=== PATIENT | male | born 1960 | race Caucasian/White ===

== ENCOUNTER 2021-03-02 12:53 | Inpatient (IN) ==
[2021-03-02] MEDS ORDERED: CeFAZolin Syr 2,000MG/20 ML 2,000 MG/20 ML SYRINGE IVPB ONE (14:34)
[2021-03-02] MEDS ORDERED: MetroNIDAZOLE 500 MG/100 ML 500 MG/100 ML BAG IVPB ONE (14:36)
[2021-03-02] MEDS ORDERED: Ringers Solution, Lactated 1,000 ML IVC SCH (14:45)
[2021-03-02] MEDS ORDERED: *HR* OxyCODONE Immed Rel 5 MG TABLET PO PRN (15:36)
[2021-03-02] MEDS ORDERED: Ketorolac 15 MG/ML VIAL IVP PRN (15:36)
[2021-03-02] MEDS ORDERED: Ondansetron 4 MG/2 ML VIAL IVP PRN ×2 (15:36→23:40)
[2021-03-02] MEDS ORDERED: Famotidine 20 MG/2 ML VIAL IVP ONE (15:36)
[2021-03-02] MEDS ORDERED: Acetaminophen IV 1,000 MG/100 ML BAG IVPB ONE (15:45)
[2021-03-02] MEDS ORDERED: Pregabalin 75 MG CAPSULE PO ONE (15:45)
[2021-03-02] MEDS ORDERED: *HR* Midazolam HCl 2 MG/2 ML VIAL ONE (15:48)
[2021-03-02] MEDS ORDERED: *HR* FentaNYL (PF) 100 MCG/2 ML VIAL ONE ×2 (15:48→17:51)
[2021-03-02] MEDS ORDERED: *HR* Propofol 200 MG/20 ML VIAL IVP ONE (15:48)
[2021-03-02] MEDS ORDERED: *HR* Rocuronium Bromide 50 MG/5 ML VIAL ONE ×3 (15:55→18:52)
[2021-03-02] MEDS ORDERED: Lidocaine HCL 4 ML Topical Solution (Laryng-O-Jet Kit Sterile Pak) TP ONE (15:55)
[2021-03-02] MEDS ORDERED: Ondansetron 4 MG/2 ML VIAL ONE ×2 (15:55→20:13)
[2021-03-02] MEDS ORDERED: Lidocaine -MPF 2% 5 ML VIAL ONE (15:55)
[2021-03-02] MEDS ORDERED: Ipratropium/Albuterol Neb 3 ML IH ONE (16:00)
[2021-03-02] MEDS ORDERED: Clindamycin 900 MG/50 ML 900 MG/50 ML IV.SOLN IVPB ONE (16:56)
[2021-03-02] MEDS ORDERED: *HR* Labetalol 20 MG/4 ML SYRINGE IVP ONE (18:40)
[2021-03-02] MEDS ORDERED: Sugammadex Sodium 200 MG/2 ML VIAL IV ONE (20:12)
[2021-03-02] MEDS ORDERED: Ketorolac 30 MG/ML VIAL ONE (20:12)
[2021-03-02] MEDS ORDERED: *HR* HYDROMORPHONE 2 MG/ML VIAL ONE (20:16)
[2021-03-02] MEDS: *HR* HYDROmorphone PF 0.5 MG/0.5 ML SYRINGE IVP PRN ×2 (21:01→21:11)
[2021-03-02] MEDS ORDERED: Naloxone 0.4 MG/ML INJ IVP PRN (22:04)
[2021-03-02] MEDS ORDERED: Budesonide/Formoterol 160/4.5 1 PUFF INH IH SCH (22:04)
[2021-03-03] MEDS ORDERED: D5% in 0.45% NACL w KCl 20 MEQ/1,000 ML MLS IVC SCH
[2021-03-03] MEDS: 0.9 % Sodium Chloride 1,000 ML IVC SCH ×3 (00:22→20:12)
[2021-03-03] MEDS: Acetaminophen IV 1,000 MG/100 ML BAG IVPB SCH ×5 (00:57→23:37)
[2021-03-03] MEDS: *HR* OxyCODONE Immed Rel 5 MG TABLET PO PRN ×2 (02:42→20:15)
[2021-03-03 03:29] LABS: Basophils % 0.3 %; Eosinophils % 0.1 %; Hematocrit 46.1 % (37.5-50.1); Immature Granulocytes % 0.5 % (0-4); Lymphocytes # 0.5 K/mcL (0.6-4.6); Lymphocytes % 3.6 %; Mean Corpuscular HGB Conc 34.7 g/dL (31.6-35.5); Mean Corpuscular Hemoglobin 35.6 pg (28.0-33.3); Mean Corpuscular Volume 102.7 fL (83.0-100.0); Mean Platelet Volume 9.1 fL (9.4-12.4); Monocytes # 1.1 K/mcL (0.0-1.3); Monocytes % 7.6 %; Neutrophils # 13.1 K/mcL (1.6-8.9); Platelet Count 253 K/mcL (140-400); Red Blood Count 4.49 M/mcL (4.19-5.50); Red Cell Distribution Width 12.7 % (11.5-14.5); Segmented Neutrophils % 87.9 %; White Blood Count 14.8 K/mcL (4.3-11.1)
[2021-03-03 03:36] LABS: Calcium 8.4 mg/dL (8.6-10.3); Magnesium 1.6 mg/dL (1.6-2.6); Phosphorous 5.5 mg/dL (2.7-4.5); Potassium 5.2 mEq/L (3.5-5.1)
[2021-03-03] MEDS: Budesonide/Formoterol 160/4.5 1 PUFF INH IH SCH ×3 (03:42→22:05)
[2021-03-03] MEDS ORDERED: Ketorolac 15 MG/ML VIAL IVP SCH (06:00)
[2021-03-03] MEDS: Gabapentin 300 MG CAPSULE PO SCH (07:34)
[2021-03-03] MEDS: hydroCHLOROthiazide 25 MG TABLET PO SCH (07:35)
[2021-03-03] MEDS ORDERED: 0.9 % Sodium Chloride 500 ML IVC ONE (08:00)
[2021-03-04] MEDS: *HR* OxyCODONE Immed Rel 5 MG TABLET PO PRN ×2 (06:10→16:07)
[2021-03-04] MEDS: *HR* Enoxaparin 40 MG/0.4 ML SYRINGE SQ SCH (06:11)
[2021-03-04] MEDS: Acetaminophen IV 1,000 MG/100 ML BAG IVPB SCH ×4 (06:11→23:39)
[2021-03-04 06:48] LABS: Basophils % 0.3 %; Eosinophils # 0.1 K/mcL (0.0-0.6); Eosinophils % 0.9 %; Hematocrit 35.1 % (37.5-50.1); Immature Granulocytes % 0.4 % (0-4); Lymphocytes # 1.4 K/mcL (0.6-4.6); Lymphocytes % 13.8 %; Mean Corpuscular HGB Conc 34.5 g/dL (31.6-35.5); Mean Corpuscular Volume 104.5 fL (83.0-100.0); Mean Platelet Volume 9.2 fL (9.4-12.4); Monocytes # 1.2 K/mcL (0.0-1.3); Neutrophils # 7.2 K/mcL (1.6-8.9); Platelet Count 183 K/mcL (140-400); Red Blood Count 3.36 M/mcL (4.19-5.50); Red Cell Distribution Width 12.8 % (11.5-14.5); Segmented Neutrophils % 72.6 %; White Blood Count 9.9 K/mcL (4.3-11.1)
[2021-03-04 06:52] LABS: Hemoglobin 12.1 g/dL (12.9-16.9)
[2021-03-04 07:16] LABS: BUN/Creatinine Ratio 13 (6-26); Blood Urea Nitrogen 12 mg/dL (8-23); Calcium 8.1 mg/dL (8.6-10.3); Carbon Dioxide 26 mEq/L (23-29); Chloride 104 mEq/L (98-107); Glucose 96 mg/dL (70-105); Magnesium 1.7 mg/dL (1.6-2.6); Osmolality,Calculated 278 (280-300); Phosphorous 2.6 mg/dL (2.7-4.5); Potassium 3.6 mEq/L (3.5-5.1); Sodium 134 mEq/L (136-145); eGFR For African Americans > 60 (> 60); eGFR For Non-African Americans > 60 (> 60)
[2021-03-04] MEDS: hydroCHLOROthiazide 25 MG TABLET PO SCH (07:39)
[2021-03-04] MEDS: Gabapentin 300 MG CAPSULE PO SCH (07:39)
[2021-03-04] MEDS: Budesonide/Formoterol 160/4.5 1 PUFF INH IH SCH ×2 (08:15→20:09)
[2021-03-04] MEDS ORDERED: D5% in 0.45% NACL w KCl 20 MEQ/1,000 ML MLS IVC SCH ×2 (10:30→11:01)
[2021-03-04] MEDS ORDERED: Simethicone 80 MG TAB.CHEW PO PRN (11:03)
[2021-03-04] MEDS ORDERED: Ipratropium/Albuterol Neb 3 ML ONE (11:11)
[2021-03-04] MEDS: Ipratropium/Albuterol Neb 3 ML IH SCH ×3 (12:03→20:09)
[2021-03-04] MEDS: Nicotine 7 MG PATCH.TD24 TD SCH (13:23)
[2021-03-05 02:58] LABS: Basophils % 0.4 %; Eosinophils # 0.1 K/mcL (0.0-0.6); Eosinophils % 1.2 %; Hematocrit 33.6 % (37.5-50.1); Hemoglobin 11.4 g/dL (12.9-16.9); Immature Granulocytes % 0.6 % (0-4); Lymphocytes # 1.3 K/mcL (0.6-4.6); Lymphocytes % 12.1 %; Mean Corpuscular HGB Conc 33.9 g/dL (31.6-35.5); Mean Corpuscular Hemoglobin 35.1 pg (28.0-33.3); Mean Corpuscular Volume 103.4 fL (83.0-100.0); Monocytes # 1.2 K/mcL (0.0-1.3); Monocytes % 11.2 %; Neutrophils # 7.9 K/mcL (1.6-8.9); Platelet Count 188 K/mcL (140-400); Red Blood Count 3.25 M/mcL (4.19-5.50); Red Cell Distribution Width 12.4 % (11.5-14.5); Segmented Neutrophils % 74.5 %; White Blood Count 10.6 K/mcL (4.3-11.1)
[2021-03-05 03:10] LABS: BUN/Creatinine Ratio 9 (6-26); Blood Urea Nitrogen 7 mg/dL (8-23); Calcium 8.1 mg/dL (8.6-10.3); Carbon Dioxide 28 mEq/L (23-29); Chloride 99 mEq/L (98-107); Glucose 136 mg/dL (70-105); Magnesium 1.6 mg/dL (1.6-2.6); Osmolality,Calculated 274 (280-300); Phosphorous 3.2 mg/dL (2.7-4.5); Potassium 2.9 mEq/L (3.5-5.1); Sodium 132 mEq/L (136-145); eGFR For African Americans > 60 (> 60); eGFR For Non-African Americans > 60 (> 60)
[2021-03-05] MEDS: Ipratropium/Albuterol Neb 3 ML IH SCH ×2 (04:14→10:42)
[2021-03-05] MEDS: Acetaminophen IV 1,000 MG/100 ML BAG IVPB SCH (05:25)
[2021-03-05] MEDS: *HR* Enoxaparin 40 MG/0.4 ML SYRINGE SQ SCH (05:26)
[2021-03-05 08:25] VITALS: BP 121/75; PULSE 81; TEMP 98.4
[2021-03-05] MEDS ORDERED: 0.9 % Sodium Chloride 1,000 ML IVC SCH (08:30)
[2021-03-05] MEDS: hydroCHLOROthiazide 25 MG TABLET PO SCH (09:08)
[2021-03-05] MEDS: Gabapentin 300 MG CAPSULE PO SCH (09:09)
[2021-03-05] MEDS: Nicotine 7 MG PATCH.TD24 TD SCH (09:44)
[2021-03-05] MEDS: Budesonide/Formoterol 160/4.5 1 PUFF INH IH SCH (10:42)
[2021-03-05 10:44] VITALS: O2SAT 95
[2021-03-05] MEDS ORDERED: MOM Conc 10 ML UD.LIQ PO ONE (13:49)
[2021-03-05] MEDS ORDERED: Potassium Chloride Elixir 20 MEQ/15 ML UDC PO ONE (13:49)
== END 2021-03-05 14:38 | disposition home or self-care (01) | DRG 330 ==
LOC: SAMDAY 12:53 → 3ANU 13:54
PROVIDERS: ADMIT Surgery; ATTEND Surgery

== ENCOUNTER 2021-03-06 14:24 | Inpatient (IN) ==
[2021-03-06] MEDS ORDERED: *HR* FentaNYL (PF) 100 MCG/2 ML VIAL ONE ×2 (17:23→19:27)
[2021-03-06] MEDS ORDERED: *HR* Propofol 200 MG/20 ML VIAL IVP ONE ×2 (17:23→19:28)
[2021-03-06] MEDS ORDERED: Ondansetron 4 MG/2 ML VIAL ONE (17:25)
[2021-03-06] MEDS ORDERED: Lidocaine HCL 4 ML Topical Solution (Laryng-O-Jet Kit Sterile Pak) TP ONE (17:25)
[2021-03-06] MEDS ORDERED: *HR* Rocuronium Bromide 50 MG/5 ML VIAL ONE ×2 (17:25→19:27)
[2021-03-06] MEDS ORDERED: Lidocaine -MPF 2% 5 ML VIAL ONE ×3 (17:25→20:40)
[2021-03-06] MEDS ORDERED: Ondansetron 4 MG/2 ML VIAL IVP PRN (18:23)
[2021-03-06] MEDS ORDERED: Albuterol 2.5 MG/3 ML NEBULIZER IH PRN (18:23)
[2021-03-06] MEDS ORDERED: *HR* HYDROmorphone PF 0.5 MG/0.5 ML SYRINGE IVP PRN (18:23)
[2021-03-06] MEDS ORDERED: *HR* Meperidine 25 MG/ML SYRINGE IVP PRN (18:23)
[2021-03-06] MEDS ORDERED: *HR* Midazolam HCl 2 MG/2 ML VIAL ONE (19:27)
[2021-03-06] MEDS ORDERED: *HR* Succinylcholine 200 MG/10 ML VIAL IVP ONE (19:27)
[2021-03-06] MEDS ORDERED: *HR* Etomidate 40 MG/20 ML VIAL IVP ONE (19:35)
[2021-03-06] MEDS ORDERED: CefOXitin 2,000 MG VIAL ONE (19:42)
[2021-03-06] MEDS ORDERED: *HR* Magnesium Sulfate 1 GM/2 ML VIAL ONE (19:46)
[2021-03-06] MEDS ORDERED: Albumin Human 5% 25.0 GM/500 ML IV.SOLN ONE (19:47)
[2021-03-06] MEDS ORDERED: *HR* Labetalol 20 MG/4 ML SYRINGE IVP ONE (20:37)
[2021-03-06] MEDS ORDERED: Ondansetron ODT 4 MG TAB.RAPDIS SL PRN (21:11)
[2021-03-06] MEDS ORDERED: *HR* Metoprolol 5 MG/5 ML VIAL IVP PRN (21:11)
[2021-03-06] MEDS ORDERED: *HR* HYDROmorphone 20 MG/20 ML PCA IVC PRN (21:11)
[2021-03-06 22:39] LABS: Basophils % 0.3 %; Eosinophils # 0.1 K/mcL (0.0-0.6); Eosinophils % 0.4 %; Hematocrit 34.5 % (37.5-50.1); Hemoglobin 11.7 g/dL (12.9-16.9); Immature Granulocytes % 0.7 % (0-4); Lymphocytes # 0.5 K/mcL (0.6-4.6); Lymphocytes % 3.9 %; Mean Corpuscular HGB Conc 33.9 g/dL (31.6-35.5); Mean Corpuscular Hemoglobin 35.1 pg (28.0-33.3); Mean Corpuscular Volume 103.6 fL (83.0-100.0); Mean Platelet Volume 8.8 fL (9.4-12.4); Monocytes # 0.9 K/mcL (0.0-1.3); Monocytes % 6.5 %; Neutrophils # 12.2 K/mcL (1.6-8.9); Platelet Count 228 K/mcL (140-400); Red Blood Count 3.33 M/mcL (4.19-5.50); Red Cell Distribution Width 12.5 % (11.5-14.5); Segmented Neutrophils % 88.2 %; White Blood Count 13.8 K/mcL (4.3-11.1)
[2021-03-06] MEDS: 0.9 % Sodium Chloride 1,000 ML IVC SCH (22:52)
[2021-03-06 23:00] LABS: BUN/Creatinine Ratio 10 (6-26); Blood Urea Nitrogen 9 mg/dL (8-23); Calcium 7.8 mg/dL (8.6-10.3); Carbon Dioxide 24 mEq/L (23-29); Chloride 99 mEq/L (98-107); Glucose 128 mg/dL (70-105); Osmolality,Calculated 278 (280-300); Phosphorous 3.5 mg/dL (2.7-4.5); Potassium 4.1 mEq/L (3.5-5.1); Sodium 134 mEq/L (136-145); eGFR For African Americans > 60 (> 60); eGFR For Non-African Americans > 60 (> 60)
[2021-03-06] MEDS: Acetaminophen IV 1,000 MG/100 ML BAG IVPB SCH (23:46)
[2021-03-06] MEDS: Piperacillin/Tazobactam 3.375 GM in 0.9 % Sodium Chloride Mini Bag 100 ML IVPB SCH (23:47)
[2021-03-07] MEDS: Acetaminophen IV 1,000 MG/100 ML BAG IVPB SCH ×3 (06:20→20:33)
[2021-03-07] MEDS: *HR* Enoxaparin 40 MG/0.4 ML SYRINGE SQ SCH (06:20)
[2021-03-07] MEDS: Piperacillin/Tazobactam 3.375 GM in 0.9 % Sodium Chloride Mini Bag 100 ML IVPB SCH ×2 (07:41→17:17)
[2021-03-07] MEDS ORDERED: Albuterol 2.5 MG/3 ML NEBULIZER IH SCH (08:00)
[2021-03-07] MEDS: 0.9 % Sodium Chloride 1,000 ML IVC SCH ×2 (09:23→20:32)
[2021-03-07 14:14] LABS: Basophils % 0.1 %; Eosinophils % 0.2 %; Hematocrit 32.5 % (37.5-50.1); Immature Granulocytes % 0.5 % (0-4); Lymphocytes % 9.6 %; Mean Corpuscular HGB Conc 33.8 g/dL (31.6-35.5); Mean Corpuscular Hemoglobin 35.4 pg (28.0-33.3); Mean Corpuscular Volume 104.5 fL (83.0-100.0); Mean Platelet Volume 9.1 fL (9.4-12.4); Monocytes # 1.3 K/mcL (0.0-1.3); Monocytes % 13.3 %; Neutrophils # 7.6 K/mcL (1.6-8.9); Platelet Count 250 K/mcL (140-400); Red Blood Count 3.11 M/mcL (4.19-5.50); Red Cell Distribution Width 12.6 % (11.5-14.5); Segmented Neutrophils % 76.3 %
[2021-03-07 14:33] LABS: Magnesium 2.1 mg/dL (1.6-2.6); Phosphorous 3.7 mg/dL (2.7-4.5)
[2021-03-07 14:34] LABS: BUN/Creatinine Ratio 12 (6-26); Blood Urea Nitrogen 11 mg/dL (8-23); Calcium 8.2 mg/dL (8.6-10.3); Carbon Dioxide 30 mEq/L (23-29); Chloride 98 mEq/L (98-107); Glucose 105 mg/dL (70-105); Osmolality,Calculated 280 (280-300); Potassium 4.2 mEq/L (3.5-5.1); Sodium 135 mEq/L (136-145); eGFR For African Americans > 60 (> 60); eGFR For Non-African Americans > 60 (> 60)
[2021-03-07] MEDS: Albuterol 2.5 MG/3 ML NEBULIZER IH SCH ×2 (16:01→20:37)
[2021-03-08] MEDS: Acetaminophen IV 1,000 MG/100 ML BAG IVPB SCH ×5 (01:00→23:49)
[2021-03-08] MEDS: Piperacillin/Tazobactam 3.375 GM in 0.9 % Sodium Chloride Mini Bag 100 ML IVPB SCH ×4 (01:01→23:49)
[2021-03-08] MEDS: Albuterol 2.5 MG/3 ML NEBULIZER IH SCH ×4 (03:47→19:59)
[2021-03-08] MEDS: 0.9 % Sodium Chloride 1,000 ML IVC SCH ×2 (05:18→16:51)
[2021-03-08] MEDS: *HR* Enoxaparin 40 MG/0.4 ML SYRINGE SQ SCH (05:19)
[2021-03-08 12:08] LABS: Alanine Aminotransferase 26 Units/L (7-52); Albumin 3.4 g/dL (3.5-5.7); Albumin/Globulin Ratio 1.1 (1.1-2.2); Alkaline Phosphatase 46 Units/L (34-104); Aspartate Amino Transferase 38 Units/L (13-39); BUN/Creatinine Ratio 15 (6-26); Bilirubin,Total 0.7 mg/dL (0.3-1.0); Blood Urea Nitrogen 13 mg/dL (8-23); Calcium 8.5 mg/dL (8.6-10.3); Carbon Dioxide 29 mEq/L (23-29); Chloride 96 mEq/L (98-107); Glucose 82 mg/dL (70-105); Magnesium 2.2 mg/dL (1.6-2.6); Osmolality,Calculated 291 (280-300); Potassium 3.4 mEq/L (3.5-5.1); Sodium 141 mEq/L (136-145); Total Protein 6.4 g/dL (6.4-8.9); eGFR For African Americans > 60 (> 60); eGFR For Non-African Americans > 60 (> 60)
[2021-03-08] MEDS ORDERED: Clinimix E 5%-20% SOLUTION 2,000 ML with MVI, adult with vitamin K 10 ML IVC SCH (17:00)
[2021-03-09] MEDS: 0.9 % Sodium Chloride 1,000 ML IVC SCH ×2 (03:48→17:04)
[2021-03-09] MEDS: Albuterol 2.5 MG/3 ML NEBULIZER IH SCH ×4 (04:03→20:35)
[2021-03-09] MEDS: *HR* Enoxaparin 40 MG/0.4 ML SYRINGE SQ SCH (05:06)
[2021-03-09] MEDS: Insulin LISPRO 300 UNITS/3 ML VIAL SUBQ SCH ×6 (05:06→23:59)
[2021-03-09] MEDS: Acetaminophen IV 1,000 MG/100 ML BAG IVPB SCH ×4 (05:07→23:37)
[2021-03-09 06:52] LABS: BUN/Creatinine Ratio 16 (6-26); Blood Urea Nitrogen 12 mg/dL (8-23); Calcium 8.3 mg/dL (8.6-10.3); Carbon Dioxide 43 mEq/L (23-29); Chloride 97 mEq/L (98-107); Glucose 144 mg/dL (70-105); Magnesium 2.2 mg/dL (1.6-2.6); Osmolality,Calculated 300 (280-300); Potassium 2.9 mEq/L (3.5-5.1); Sodium 144 mEq/L (136-145); eGFR For African Americans > 60 (> 60); eGFR For Non-African Americans > 60 (> 60)
[2021-03-09 08:15] LABS: Phosphorous 2.3 mg/dL (2.7-4.5); Triglycerides 146 mg/dL (< 150)
[2021-03-09] MEDS: Pantoprazole 40 MG VIAL IVP SCH (10:50)
[2021-03-09] MEDS ORDERED: D10% in Water 500 ML IVC PRN (11:43)
[2021-03-09] MEDS ORDERED: Clinimix E 5%-15% SOLUTION 2,000 ML with MVI, adult with vitamin K 10 ML IVC SCH (17:00)
[2021-03-09] MEDS ORDERED: 0.9 % Sodium Chloride 1,000 ML IVC ONE (18:24)
[2021-03-09] MEDS ORDERED: Potassium Phosphate 44 MEQ in 0.9 % Sodium Chloride 250 ML IVPB ONE (20:11)
[2021-03-10] MEDS: Albuterol 2.5 MG/3 ML NEBULIZER IH SCH ×4 (04:06→20:56)
[2021-03-10] MEDS: Insulin LISPRO 300 UNITS/3 ML VIAL SUBQ SCH ×5 (05:09→20:48)
[2021-03-10] MEDS: 0.9 % Sodium Chloride 1,000 ML IVC SCH ×3 (05:21→13:10)
[2021-03-10] MEDS: *HR* Enoxaparin 40 MG/0.4 ML SYRINGE SQ SCH (05:29)
[2021-03-10] MEDS: Pantoprazole 40 MG VIAL IVP SCH (05:29)
[2021-03-10] MEDS: Acetaminophen IV 1,000 MG/100 ML BAG IVPB SCH ×3 (05:30→17:11)
[2021-03-10 05:35] LABS: BUN/Creatinine Ratio 14 (6-26); Blood Urea Nitrogen 10 mg/dL (8-23); Calcium 7.9 mg/dL (8.6-10.3); Carbon Dioxide 37 mEq/L (23-29); Chloride 102 mEq/L (98-107); Glucose 123 mg/dL (70-105); Osmolality,Calculated 302 (280-300); Phosphorous 4.1 mg/dL (2.7-4.5); Sodium 146 mEq/L (136-145); eGFR For African Americans > 60 (> 60); eGFR For Non-African Americans > 60 (> 60)
[2021-03-10] MEDS ORDERED: 0.9 % Sodium Chloride 1,000 ML IVC ONE (10:02)
[2021-03-10] MEDS ORDERED: Clinimix E 5%-15% SOLUTION 2,000 ML with MVI, adult with vitamin K 10 ML IVC SCH (17:00)
[2021-03-11] MEDS: Insulin LISPRO 300 UNITS/3 ML VIAL SUBQ SCH ×6 (00:37→19:53)
[2021-03-11] MEDS: Acetaminophen IV 1,000 MG/100 ML BAG IVPB SCH ×4 (00:50→17:52)
[2021-03-11] MEDS: 0.9 % Sodium Chloride 1,000 ML IVC SCH ×2 (01:54→13:27)
[2021-03-11 04:07] LABS: BUN/Creatinine Ratio 19 (6-26); Blood Urea Nitrogen 12 mg/dL (8-23); Calcium 8.1 mg/dL (8.6-10.3); Carbon Dioxide 31 mEq/L (23-29); Chloride 107 mEq/L (98-107); Glucose 117 mg/dL (70-105); Osmolality,Calculated 299 (280-300); Potassium 3.2 mEq/L (3.5-5.1); Sodium 144 mEq/L (136-145); eGFR For African Americans > 60 (> 60); eGFR For Non-African Americans > 60 (> 60)
[2021-03-11] MEDS: Albuterol 2.5 MG/3 ML NEBULIZER IH SCH ×4 (04:54→22:03)
[2021-03-11] MEDS: *HR* Enoxaparin 40 MG/0.4 ML SYRINGE SQ SCH (05:34)
[2021-03-11] MEDS: Pantoprazole 40 MG VIAL IVP SCH (05:35)
[2021-03-11] MEDS ORDERED: Gabapentin 300 MG CAPSULE PO PRN (15:39)
[2021-03-11] MEDS ORDERED: diazePAM 5 MG TABLET PO PRN (15:39)
[2021-03-11] MEDS ORDERED: Isovue-370 500 ML BOTTLE IVP ONE (16:47)
[2021-03-11] MEDS ORDERED: Clinimix E 5%-15% SOLUTION 2,000 ML with MVI, adult with vitamin K 10 ML IVC SCH (17:00)
[2021-03-11] MEDS ORDERED: *HR* LORazepam 2 MG/ML VIAL IVP ONE (18:46)
[2021-03-11] MEDS: *HR* OxyCODONE Immed Rel 5 MG TABLET PO PRN (20:53)
[2021-03-11] MEDS: Budesonide/Formoterol 160/4.5 1 PUFF INH IH SCH (22:03)
[2021-03-11] MEDS ORDERED: Furosemide 40 MG/4 ML VIAL IVP ONE (23:39)
[2021-03-12] MEDS: Acetaminophen IV 1,000 MG/100 ML BAG IVPB SCH ×4 (00:42→17:47)
[2021-03-12 01:13] LABS: Basophils # 0.1 K/mcL (0.0-0.2); Basophils % 0.4 %; Eosinophils # 0.3 K/mcL (0.0-0.6); Eosinophils % 2.3 %; Hematocrit 33.6 % (37.5-50.1); Hemoglobin 10.9 g/dL (12.9-16.9); Immature Granulocytes % 0.5 % (0-4); Lymphocytes # 1.4 K/mcL (0.6-4.6); Lymphocytes % 10.5 %; Mean Corpuscular HGB Conc 32.4 g/dL (31.6-35.5); Mean Corpuscular Hemoglobin 34.9 pg (28.0-33.3); Mean Corpuscular Volume 107.7 fL (83.0-100.0); Mean Platelet Volume 8.6 fL (9.4-12.4); Monocytes # 1.1 K/mcL (0.0-1.3); Monocytes % 7.8 %; Neutrophils # 10.7 K/mcL (1.6-8.9); Platelet Count 352 K/mcL (140-400); Red Blood Count 3.12 M/mcL (4.19-5.50); Red Cell Distribution Width 12.8 % (11.5-14.5); Segmented Neutrophils % 78.5 %; White Blood Count 13.6 K/mcL (4.3-11.1)
[2021-03-12 01:32] LABS: BUN/Creatinine Ratio 16 (6-26); Blood Urea Nitrogen 11 mg/dL (8-23); Calcium 8.1 mg/dL (8.6-10.3); Carbon Dioxide 28 mEq/L (23-29); Chloride 103 mEq/L (98-107); Glucose 95 mg/dL (70-105); Magnesium 1.8 mg/dL (1.6-2.6); Osmolality,Calculated 285 (280-300); Phosphorous 2.9 mg/dL (2.7-4.5); Potassium 3.5 mEq/L (3.5-5.1); Sodium 138 mEq/L (136-145); eGFR For African Americans > 60 (> 60); eGFR For Non-African Americans > 60 (> 60)
[2021-03-12] MEDS: Insulin LISPRO 300 UNITS/3 ML VIAL SUBQ SCH ×6 (01:45→19:40)
[2021-03-12] MEDS: Albuterol 2.5 MG/3 ML NEBULIZER IH SCH ×4 (04:08→20:26)
[2021-03-12] MEDS: Pantoprazole 40 MG VIAL IVP SCH (06:19)
[2021-03-12] MEDS: *HR* Enoxaparin 40 MG/0.4 ML SYRINGE SQ SCH (06:22)
[2021-03-12] MEDS: Celecoxib 200 MG CAPSULE PO SCH (07:50)
[2021-03-12] MEDS: hydroCHLOROthiazide 25 MG TABLET PO SCH (07:51)
[2021-03-12] MEDS: Budesonide/Formoterol 160/4.5 1 PUFF INH IH SCH ×2 (11:08→20:26)
[2021-03-12] MEDS ORDERED: *HR* LORazepam 2 MG/ML VIAL IVP PRN (14:09)
[2021-03-12] MEDS ORDERED: diazePAM 10 MG/2 ML SYRINGE IVP PRN (14:09)
[2021-03-12] MEDS ORDERED: Sodium Phosphate 30 MMOL in 0.9 % Sodium Chloride 100 ML IVPB ONE (14:11)
[2021-03-12] MEDS ORDERED: Potassium Phosphate 44 MEQ in 0.9 % Sodium Chloride 250 ML IVPB ONE (14:11)
[2021-03-12] MEDS ORDERED: Clinimix E 5%-15% SOLUTION 2,000 ML with MVI, adult with vitamin K 10 ML IVC SCH (17:00)
[2021-03-12] MEDS: Thiamine (B-1) 100 MG, Folic Acid 1 MG, MVI, adult with vitamin K 10 ML in 0.9 % Sodi... IVPB SCH (17:46)
[2021-03-13] MEDS: Acetaminophen IV 1,000 MG/100 ML BAG IVPB SCH ×4 (00:36→18:50)
[2021-03-13] MEDS: Insulin LISPRO 300 UNITS/3 ML VIAL SUBQ SCH ×6 (00:36→21:33)
[2021-03-13] MEDS: Albuterol 2.5 MG/3 ML NEBULIZER IH SCH ×4 (02:53→20:29)
[2021-03-13] MEDS: *HR* Enoxaparin 40 MG/0.4 ML SYRINGE SQ SCH (04:51)
[2021-03-13] MEDS: Pantoprazole 40 MG VIAL IVP SCH (04:51)
[2021-03-13 06:07] LABS: BUN/Creatinine Ratio 23 (6-26); Blood Urea Nitrogen 16 mg/dL (8-23); Calcium 8.9 mg/dL (8.6-10.3); Carbon Dioxide 37 mEq/L (23-29); Chloride 100 mEq/L (98-107); Glucose 130 mg/dL (70-105); Magnesium 2.5 mg/dL (1.6-2.6); Osmolality,Calculated 299 (280-300); Phosphorous 4.1 mg/dL (2.7-4.5); Potassium 3.3 mEq/L (3.5-5.1); Sodium 143 mEq/L (136-145); eGFR For African Americans > 60 (> 60); eGFR For Non-African Americans > 60 (> 60)
[2021-03-13] MEDS: Celecoxib 200 MG CAPSULE PO SCH (10:45)
[2021-03-13] MEDS: hydroCHLOROthiazide 25 MG TABLET PO SCH (10:45)
[2021-03-13] MEDS: Budesonide/Formoterol 160/4.5 1 PUFF INH IH SCH ×2 (10:53→20:29)
[2021-03-13] MEDS ORDERED: Clinimix E 5%-15% SOLUTION 2,000 ML with MVI, adult with vitamin K 10 ML IVC SCH (17:00)
[2021-03-13] MEDS: Thiamine (B-1) 100 MG, Folic Acid 1 MG, MVI, adult with vitamin K 10 ML in 0.9 % Sodi... IVPB SCH (19:04)
[2021-03-13] MEDS: *HR* OxyCODONE Immed Rel 5 MG TABLET PO PRN (22:24)
[2021-03-14] MEDS: Acetaminophen IV 1,000 MG/100 ML BAG IVPB SCH ×4 (01:00→17:45)
[2021-03-14] MEDS: Insulin LISPRO 300 UNITS/3 ML VIAL SUBQ SCH ×4 (01:00→12:16)
[2021-03-14] MEDS: Albuterol 2.5 MG/3 ML NEBULIZER IH SCH ×4 (04:20→20:52)
[2021-03-14 04:57] LABS: BUN/Creatinine Ratio 21 (6-26); Blood Urea Nitrogen 14 mg/dL (8-23); Calcium 8.1 mg/dL (8.6-10.3); Carbon Dioxide 32 mEq/L (23-29); Chloride 104 mEq/L (98-107); Glucose 128 mg/dL (70-105); Osmolality,Calculated 294 (280-300); Phosphorous 3.2 mg/dL (2.7-4.5); Potassium 3.1 mEq/L (3.5-5.1); Sodium 141 mEq/L (136-145); eGFR For African Americans > 60 (> 60); eGFR For Non-African Americans > 60 (> 60)
[2021-03-14] MEDS: *HR* Enoxaparin 40 MG/0.4 ML SYRINGE SQ SCH (05:04)
[2021-03-14] MEDS: Pantoprazole 40 MG VIAL IVP SCH (05:24)
[2021-03-14] MEDS: hydroCHLOROthiazide 25 MG TABLET PO SCH (08:11)
[2021-03-14] MEDS: Celecoxib 200 MG CAPSULE PO SCH (08:11)
[2021-03-14] MEDS: Budesonide/Formoterol 160/4.5 1 PUFF INH IH SCH ×2 (09:53→20:52)
[2021-03-14] MEDS ORDERED: Clinimix E 5%-15% SOLUTION 2,000 ML with MVI, adult with vitamin K 10 ML IVC SCH (17:00)
[2021-03-14] MEDS: Thiamine (B-1) 100 MG, Folic Acid 1 MG, MVI, adult with vitamin K 10 ML in 0.9 % Sodi... IVPB SCH (17:46)
[2021-03-14 18:38] VITALS: BP 113/71; PULSE 101; TEMP 98.2; O2SAT 94
== END 2021-03-14 21:10 | disposition home or self-care (01) | DRG 908 ==
LOC: 3ANU 21:27
PROVIDERS: ADMIT Surgery; ATTEND Surgery